=== PATIENT | male | born 1980 | race Asian ===

== ENCOUNTER 2016-12-23 09:55 | Outpatient (CLI) | payer OTHER | END 2016-12-23 09:56 | disposition home or self-care (01) | DX: G47.30 Sleep apnea, unspecified (principal); G47.8 Other sleep disorders; G47.10 Hypersomnia, unspecified; R06.83 Snoring ==

== ENCOUNTER 2017-01-03 21:52 | Outpatient (CLI) | payer OTHER | END 2017-01-03 21:53 | disposition home or self-care (01) | DX: G47.33 Obstructive sleep apnea (adult) (pediatric) (principal); Z68.34 Body mass index [BMI] 34.0-34.9, adult ==

== ENCOUNTER 2017-01-14 11:00 | Outpatient (CLI) | payer OTHER | END 2017-01-14 11:01 | disposition home or self-care (01) | LOC: SC 11:00 | PROVIDERS: ATTEND Nurse Practitioner Family | DX: G47.33 Obstructive sleep apnea (adult) (pediatric) (principal) | CPT/HCPCS: 99212; 99214 ==

== ENCOUNTER 2017-01-23 14:14 | Outpatient (CLI) | payer OTHER | END 2017-01-23 14:15 | disposition home or self-care (01) | DX: G47.33 Obstructive sleep apnea (adult) (pediatric) (principal) ==

== ENCOUNTER 2017-10-28 06:53 | Emergency (ER) | payer OTHER ==
[2017-10-28] MEDS ORDERED: predniSONE 20 MG TABLET PO STA (07:01)
[2017-10-28] MEDS ORDERED: IPRATROPIUM/ALBUTEROL 3 ML NEB INH STA (07:01)
--- NOTE | 2017-10-28 07:02 | ED Physician Documentation ---
PD HPI DYSPNEA - Stated complaint Stated Complaint: SOA/COUGH - Chief complaint Chief Complaint: Resp - History obtained from History obtained from: Patient - History of Present Illness Timing - onset: How many weeks ago (2) Timing - details: Gradual onset, Intermittant Associated symptoms: Cough, Wheezing. No: Fever, Chest pain / discomfort Similar symptoms before: No diagnosis Recently seen: Not recently seen - Additional information Additional information: Patient is a 37 year old male who is presenting to the emergency department for cough and shortness of breath. patient states that for the last 2 weeks he has been dealing with a cough. Patient saw his doctor about a week ago who gave him some unknown medication and told him to come back in a week if his symptoms did not get better. patient states that he woke up this morning and felt real short of breath so he had his take him in. Review of Systems Constitutional: denies: Fever, Chills Eyes: denies: Discharge, Irritation Ears: reports: Reviewed and negative Nose: reports: Congestion Throat: denies: Sore throat Cardiac: denies: Chest pain / pressure Respiratory: reports: Cough, Wheezing GI: denies: Nausea, Vomiting Musculoskeletal: denies: Neck pain, Back pain Neurologic: reports: Reviewed and negative Psychiatric: reports: Reviewed and negative Immunocompromised: denies: Immunocompromised PD PAST MEDICAL HISTORY - Present Medications Home Medications: Ambulatory Orders Medication Instructions Recorded Confirmed Albuterol Sulf [Ventolin Hfa 1 - 2 puffs PO Q4H PRN 10/28/17 10/28/17 Inhaler] Benzonatate [Tessalon] 100 mg PO DAILY PM 10/28/17 10/28/17 predniSONE [Prednisone] 40 mg PO DAILY 5 Days tablet 10/28/17 - Allergies Allergies/Adverse Reactions: Allergies Allergy/AdvReac Type Severity Reaction Status Date / Time No Known Drug Allergies Allergy Verified 10/28/17 07:02 PD ED PE NORMAL - Vitals Vital signs reviewed: Yes - General General: Alert and oriented X 3, No acute distress - HEENT HEENT: Atraumatic, PERRL, Pharynx benign - Neck Neck: Supple, no meningeal sign, No JVD - Cardiac Cardiac: RRR, No murmur - Abdomen Abdomen: Soft, Non tender, Non distended - Derm Derm: Normal color, Warm and dry, No rash - Extremities Extremities: No deformity - Neuro Neuro: Alert and oriented X 3, No motor deficit, No sensory deficit, Normal speech - Psych Psych: Normal mood PD ED PE EXPANDED - Respiratory Respiratory: Wheezing, Right middle lobe, Right lower lobe, Left upper lobe, Left lower lobe. No: Stridor, Accessory mm use Results - Vitals Vitals: Vital Signs - 24 hr 10/28/17 10/28/17 10/28/17 06:58 07:18 07:39 Temperature 35.8 C L Heart Rate 97 88 80 Respiratory 22 18 20 Rate Blood Pressure 192/105 H 133/86 H O2 Saturation 94 98 Oxygen O2 Source Room air - Rads (name of study) chest x-ray Radiology: Final report received, EMP read contemporaneously (normal chest x-ray ) PD MEDICAL DECISION MAKING - ED course Complexity details: reviewed old records, reviewed results, re-evaluated patient , considered differential, d/w patient ED course: Patient was seen and examined at bedside. Patient had bilateral wheezing but no history of asthma. Patient was started on three duonebs and steroids. chest x-ray was ordered. Patient's chest x-ray was within normal limits. After the treatments the patient was re-evaluated. patient's wheezing resolved and patient was 98% on room air. Patient stated that he was feeling better and ready to go home. Patient was given detailed discharge and follow up instructions. patient required no further work up and was stable for discharge with outpatient follow up. Departure - Departure Disposition: 01 Home, Self Care Clinical Impression: Reactive airway disease Condition: Good Instructions: ED Reactive Airway Disease Follow-Up: Jerson Hall MD [Primary Care Provider] - Prescriptions: predniSONE [Prednisone] 40 mg PO DAILY 5 Days tablet Comments: Your symptoms today are being caused by reactive airway disease. Whether it is being exacerbated by allergens or virus the treatment is the same. You will be on the steroids for the next five days. You should avoid any tirggers including smoke, pollen, dander etc. You should call your doctor today to schedule a follow up appointment. You may return to the emergency department at any time for new, worsening or uncontrollable symptoms. Forms: Activity restrictions
--- NOTE | 2017-10-28 07:27 | XRAY Preliminary Report ---
Exam: XR CHEST 1 VIEW IMPRESSION: Normal single view chest. [facility] SITE ID: [id number]
--- NOTE | 2017-10-28 07:30 | XRAY Report ---
EXAM: CHEST RADIOGRAPHY EXAM DATE: 10/28/2017 07:16 AM. CLINICAL HISTORY: Cough, short of breath. COMPARISON: None. TECHNIQUE: 1 view. FINDINGS: Lungs/Pleura: No focal opacities evident. No pleural effusion. No pneumothorax. Mediastinum: Within exam limitations, the cardiomediastinal contour is normal. Other: None. IMPRESSION: Normal single view chest. [facility] Referring Provider Line: [phone] SITE ID: [id number]
[2017-10-28 08:56] VITALS: BP 142/81
== END 2017-10-28 08:45 | disposition home or self-care (01) ==
LOC: ED 06:53
DX: J45.909 Unspecified asthma, uncomplicated (principal)
CPT/HCPCS: 71010; 94664; 99283; 99284; J7512; J7620

== ENCOUNTER 2017-12-24 13:14 | Outpatient (CLI) | payer OTHER | END 2017-12-24 13:15 | disposition home or self-care (01) | LOC: SC 13:14 | PROVIDERS: ATTEND Nurse Practitioner Family | DX: G47.33 Obstructive sleep apnea (adult) (pediatric) (principal) | CPT/HCPCS: 99212; 99214 ==

== ENCOUNTER 2017-12-27 09:47 | Outpatient (CLI) | payer OTHER ==
[2017-12-27] MEDS ORDERED: ALBUTEROL NEB 2.5 MG/3 ML INH ONE (12:00)
== END 2017-12-27 09:48 | disposition home or self-care (01) ==
LOC: RT 09:47
PROVIDERS: ATTEND Family Medicine
DX: R06.02 Shortness of breath (principal); R06.2 Wheezing
CPT/HCPCS: 94060; 94729; J7613

== ENCOUNTER 2018-01-27 13:01 | Outpatient (CLI) | payer OTHER | END 2018-01-27 13:02 | disposition home or self-care (01) | LOC: SC 13:01 | PROVIDERS: ATTEND Nurse Practitioner Family | DX: G47.33 Obstructive sleep apnea (adult) (pediatric) (principal) | CPT/HCPCS: 99212; 99214 ==

== ENCOUNTER 2018-04-28 13:10 | Outpatient (CLI) | payer OTHER | END 2018-04-28 13:11 | disposition home or self-care (01) | LOC: SC 13:10 | PROVIDERS: ATTEND Nurse Practitioner Family | DX: G47.33 Obstructive sleep apnea (adult) (pediatric) (principal) | CPT/HCPCS: 99212; 99214 ==

== ENCOUNTER 2018-05-26 07:56 | Outpatient (CLI) | payer OTHER ==
[2018-05-26] MEDS ORDERED: GADOBUTROL 10 MMOL/10 ML VIAL ONE (08:16)
[2018-05-26] MEDS ORDERED: GADOBUTROL 10 MMOL/10 ML VIAL IVP ONE (11:40)
--- NOTE | 2018-05-26 15:56 | MRI Report ---
Procedure Date: 05/26/2018 Accession Number: [id number] / [id number] Procedure: MRI - Brain W/WO CPT Code: FULL RESULT: EXAM: MRI BRAIN WITHOUT AND WITH CONTRAST EXAM DATE: 05/26/2018 09:01 AM. CLINICAL HISTORY: 38-year-old with history of prior AVM treated with surgery approximately 8 years ago. Evaluate for intracranial pathology. COMPARISON: None. TECHNIQUE: Multiplanar, multisequence T1-weighted and fluid-sensitive MR sequences of the brain were performed. Sequences optimized for routine evaluation. Other: None. IV Contrast: 10 cc GADAVIST. FINDINGS: Brain Volume: Normal for age. Parenchyma: Postsurgical changes of right parietal craniotomy for resection of a right parietal AVM. There is a moderate-sized resection cavity seen within the right parietal lobe. There is [id number] surrounding FLAIR signal hyperintensity. There is no definite mass or masslike enhancement seen along or deep to the resection cavity. No definite residual AVM nidus seen. No acute parenchymal hemorrhage, mass, or midline shift. Outside of the surgical resection zone there is no areas of abnormal T2/FLAIR signal hyperintensity seen. No areas restricted diffusion seen to suggest acute infarct. There is hemosiderin deposition seen along the surgical resection cavity likely representing hemosiderin from prior surgery. No abnormal postcontrast enhancement. Ventricles/Cisterns: There is ex vacuo dilatation of the posterior body and atria of the right lateral ventricle. There is no indication of the posterior right lateral ventricle and surgical resection cavity. Overall ventricular size and configuration appear appropriate for the extent of volume loss. No evidence of hydrocephalus. Postsurgical changes of right parietal craniotomy with slight underlying dural thickening and enhancement likely postsurgical. No other abnormal extra-axial fluid collection/mass seen. Orbits: Symmetric and unremarkable. Sella Turcica: The pituitary gland, cavernous sinuses, suprasellar cistern and optic chiasm are unremarkable. IAC: Symmetric and unremarkable. Vasculature: Normal signal flow void is seen in the major arterial structures at the skull base. The dural sinuses are patent and enhance normally. Sinuses: Moderate bilateral maxillary mucosal retention cysts versus polyps. Mild to moderate mucosal thickening of the maxillary sinuses. Moderate mucosal thickening of the ethmoid air cells. Mastoid air cells and middle ear cavities appear clear. Bones: Postsurgical changes. Other: None. IMPRESSION: 1. Postsurgical changes of right parietal craniotomy for resection of a right parietal lobe AVM. A resection cavity is seen in the right parietal lobe with surrounding gliosis. No residual AVM nidus seen. No masses or masslike enhancement seen along or deep to the resection cavity margin. 2. No acute infarct, intracranial hemorrhage, definite mass, hydrocephalus, midline shift, or abnormal postcontrast enhancement. 2. Paranasal mucosal disease , as detailed above. [facility]
== END 2018-05-26 07:57 | disposition home or self-care (01) ==
LOC: DI 07:56
PROVIDERS: ATTEND Family Medicine
DX: Q28.2 Arteriovenous malformation of cerebral vessels (principal); J32.2 Chronic ethmoidal sinusitis
CPT/HCPCS: 70553; A9585

== ENCOUNTER 2018-06-23 08:35 | Outpatient (CLI) | payer OTHER | END 2018-06-23 08:36 | disposition home or self-care (01) | LOC: SC 08:35 | PROVIDERS: ATTEND Nurse Practitioner Family | DX: G47.33 Obstructive sleep apnea (adult) (pediatric) (principal) | CPT/HCPCS: 99212; 99214 ==

== ENCOUNTER 2018-07-27 09:46 | Outpatient (CLI) | payer OTHER | END 2018-07-27 09:47 | disposition home or self-care (01) | LOC: SC 09:46 | PROVIDERS: ATTEND Nurse Practitioner Family | DX: G47.33 Obstructive sleep apnea (adult) (pediatric) (principal) | CPT/HCPCS: 99212; 99213 ==